=== PATIENT | male | born 2000 | race Caucasian/White ===

== ENCOUNTER 2022-03-26 10:51 | Outpatient (REF) | payer MEDICAID, SELFPAY ==
--- NOTE | ~2022-03-26 | US_ITS ---
EXAMINATION: US SOFT TISSUE NECK CLINICAL INFORMATION: History of left forehead lump above the eyebrow. COMPARISON: None TECHNIQUE: Sonographic imaging of soft tissues in the area of palpable concern at the left for head was performed by the technologist using a high-resolution linear transducer. FINDINGS: There are no significant sonographic findings in the visualized subcutaneous tissues in the area of concern at the left forehead. The lab animal technologist was unable to identify any measurable lesion in the soft tissues. There is no fluid collection, soft tissue mass or abnormal vascularity in the region. Also, there is no evidence of a lesion extending exophytically from the skull surface in this area. US/US soft tiss head and/or neck IMPRESSION: No significant sonographic findings in the area of concern.
== END 2022-03-26 10:52 | disposition home or self-care (01) ==
LOC: HO.US 10:51
PROVIDERS: PCP Registered Nurse; Visit Provider Registered Nurse
DX: L72.9 Follicular cyst of the skin and subcutaneous tissue, unspecified (principal)
CPT/HCPCS: 76536

== ENCOUNTER 2022-05-21 02:21 | Emergency (ER) | payer OTHER, MEDICAID, SELFPAY ==
[2022-05-21 02:52] VITALS: BP 145/79; PULSE 104; RESP 17; TEMP 37.4; O2SAT 96; BMI 51.0
--- NOTE | 2022-05-21 03:10 | ED_ITS ---
HPI - Psych General Chief Complaint: Psychiatric Symptoms Stated Complaint: crisis Time Seen by Provider: 05/21/22 02:56 Source: patient Mode of arrival: ambulatory Limitations: no limitations History of Present Illness HPI Narrative: Patient 22 years old with history of anxiety, depression brought by his father for increased anxiety and depression due to inability to refill his medication Risperdal Lamictal and Klonopin as he moved from [place], for last 4 days patient reported auditory hallucination non commanding in nature coming quite otherwise patient had a suicidal attempt in 02/04 requiring 7 days of inpatient psych admission Related Data Home Medications Medication Instructions Recorded Confirmed acetaminophen 500 mg tablet 2 tab PO Q8H PRN pain 05/21/22 05/21/22 cholecalciferol (vitamin D3) 25 1 cap PO DAILY 05/21/22 05/21/22 mcg (1,000 unit) capsule (Vitamin D3) clonazepam 0.5 mg tablet 1 tab PO BID PRN anxiety 05/21/22 05/21/22 hydroxyzine pamoate 50 mg capsule 1 cap PO DAILY 05/21/22 05/21/22 lamotrigine 25 mg tablet 1 tab PO BID 05/21/22 05/21/22 naproxen sodium 220 mg tablet (All 2 tab PO ONCE headache 05/21/22 05/21/22 Day Relief) risperidone 1 mg tablet 1 mg PO QAM 05/21/22 05/21/22 rizatriptan 10 mg tablet 10 mg PO DAILY PRN Migraine 05/21/22 05/21/22 Headache Allergies Allergy/AdvReac Type Severity Reaction Status Date / Time No Known Allergies Allergy Verified 05/21/22 03:05 Review of Systems Review of Systems: Yes all other systems are reviewed and are negative [facility] Past Medical History Medical History Bipolar II disorder THEO (generalized anxiety disorder) Impulsive personality disorder Social History Social History Advance Directives: No Advance Directives Information Provided: Yes Physical Exam Vital Signs: Vital Signs: Last Vital Signs Temp 99.4 F 05/21/22 02:52 Pulse 104 H 05/21/22 02:52 Resp 17 05/21/22 02:52 BP 145/79 H 05/21/22 02:52 Pulse Ox 96 05/21/22 02:52 O2 Del Method 05/21/22 02:52 BMI result Body Mass Index 51.0 Appearance: Alert. Oriented X3. No acute distress. Eyes: PERRLA, No Nystagmus ENT: Pharynx normal. Oral Mucosa moist Neck: Normal inspection. Neck supple. CVS: Normal heart rate and rhythm. Pulses normal. Respiratory: No respiratory distress. Equal air entry bilateral, no wheezing/rales/rhonchi Abdomen: Soft and nontender. Bowel sounds are present, no mass palpable, no CVA tenderness Skin: Skin warm and dry. Normal skin color. Normal skin turgor. Extremities: No lower extremity edema. No calf tenderness psych: Calm and cooperative denies any active hallucinations or delusions Neuro: Oriented X 3. No motor deficit. No sensory deficit.No cerebellar signs , cranial nerves II-XII intact Medications Administered Generic Name Dose Route Start Last Admin Trade Name Freq PRN Reason Stop Dose Admin Clonazepam 0.5 mg 05/21/22 03:14 05/21/22 03:23 Clonazepam 0.5 Mg Tablet PO 0.5 mg BID PRN Administration anxiety Risperidone 1 mg 05/21/22 03:15 05/21/22 03:26 Risperidone 1 Mg Tablet PO 1 mg DAILY NKECHI Administration Medical Decision Making Medical Decision Making [facility] Narrative: Patient increased anxiety and depression no current SI will get care team evaluation so that he can get psychiatrist and get the prescription Lab Data [facility] Lab Attestation statement: I reviewed the patient's lab results. 05/21/22 03:22 05/21/22 03:22 Labs: Lab Results 05/21/22 05/21/22 05/21/22 Range/Units 03:06 03:06 03:22 WBC 8.2 (4.8-10.8) X10*3/uL RBC 4.93 (4.60-5.80) X10*6/uL Hgb 13.0 L (14.0-18.0) g/dl Hct 41.0 L (42.0-52.0) % MCV 83.2 (80.0-98.0) fL MCH 26.4 L (27.0-33.0) pg MCHC 31.7 (31.0-36.0) g/dl RDW 13.2 (11.0-16.0) % Plt Count 381 (160-400) X10*3/uL MPV 10.0 (9.4-12.4) fL Immature Gran % (Auto) 1.1 H (0.0-0.4) % Neut % (Auto) 47.8 (45-73) % Lymph % (Auto) 37.9 (20-40) % Walton % (Auto) 8.2 (2-11) % Eos % (Auto) 4.3 H (0-4) % Baso % (Auto) 0.7 (0-2) % Lymph # (Auto) 3.1 (1.2-4.9) X10*3/uL Walton # (Auto) 0.7 (0.1-1.2) X10*3/uL Eos # (Auto) 0.4 (0.0-0.4) X10*3/uL Baso # (Auto) 0.1 (0.0-0.2) X10*3/uL Abs Immat Gran (auto) 0.09 H (0.00-0.03) X10*3/uL Absolute Neuts (auto) 3.9 (2.0-8.3) x10*3/uL Absolute Nucleated RBC 0.000 (0.0-0.012) X10*3/uL Nucleated RBC % (auto) 0.0 (0.0-0.2) /100WBC Sodium (135-145) mmol/L Potassium (3.3-5.1) mmol/L Chloride (96-108) mmol/L Carbon Dioxide (22-29) mmol/L Anion Gap (12-20) BUN (9-16) mg/dL Creatinine (0.5-1.4) mg/dL Estim Creat Clear Calc Estimated GFR Random Glucose (60-115) mg/dL Calcium (8.4-10.2) mg/dL Total Bilirubin (0.0-1.0) mg/dL AST (5-37) U/L ALT (0-40) U/L Alkaline Phosphatase (39-117) U/L Total Protein (6.5-8.0) g/dL Albumin (3.5-5.0) g/dL Urine Opiates Screen Not Detected (Not Detect) Urine Fentanyl Screen Not Detected (Not Detect) Ur Barbiturates Screen Not Detected (Not Detect) Ur Phencyclidine Scrn Not Detected (Not Detect) Ur Amphetamines Screen Not Detected (Not Detect) U Benzodiazepines Scrn Not Detected (Not Detect) Urine Cocaine Screen Not Detected (Not Detect) U Marijuana (THC) Screen Not Detected (Not Detect) COVID-19 (CHASE) Negative (Negative) COVID-19 Clin Com See Note 05/21/22 Range/Units 03:22 WBC (4.8-10.8) X10*3/uL RBC (4.60-5.80) X10*6/uL Hgb (14.0-18.0) g/dl Hct (42.0-52.0) % MCV (80.0-98.0) fL MCH (27.0-33.0) pg MCHC (31.0-36.0) g/dl RDW (11.0-16.0) % Plt Count (160-400) X10*3/uL MPV (9.4-12.4) fL Immature Gran % (Auto) (0.0-0.4) % Neut % (Auto) (45-73) % Lymph % (Auto) (20-40) % Walton % (Auto) (2-11) % Eos % (Auto) (0-4) % Baso % (Auto) (0-2) % Lymph # (Auto) (1.2-4.9) X10*3/uL Walton # (Auto) (0.1-1.2) X10*3/uL Eos # (Auto) (0.0-0.4) X10*3/uL Baso # (Auto) (0.0-0.2) X10*3/uL Abs Immat Gran (auto) (0.00-0.03) X10*3/uL Absolute Neuts (auto) (2.0-8.3) x10*3/uL Absolute Nucleated RBC (0.0-0.012) X10*3/uL Nucleated RBC % (auto) (0.0-0.2) /100WBC Sodium 140 (135-145) mmol/L Potassium 4.4 (3.3-5.1) mmol/L Chloride 107 (96-108) mmol/L Carbon Dioxide 24 (22-29) mmol/L Anion Gap 13 (12-20) BUN 15 (9-16) mg/dL Creatinine 0.91 (0.5-1.4) mg/dL Estim Creat Clear Calc 177.9 Estimated GFR > 60 Random Glucose 97 (60-115) mg/dL Calcium 9.7 (8.4-10.2) mg/dL Total Bilirubin 0.2 (0.0-1.0) mg/dL AST 29 (5-37) U/L ALT 64 H (0-40) U/L Alkaline Phosphatase 68 (39-117) U/L Total Protein 7.3 (6.5-8.0) g/dL Albumin 4.4 (3.5-5.0) g/dL Urine Opiates Screen (Not Detect) Urine Fentanyl Screen (Not Detect) Ur Barbiturates Screen (Not Detect) Ur Phencyclidine Scrn (Not Detect) Ur Amphetamines Screen (Not Detect) U Benzodiazepines Scrn (Not Detect) Urine Cocaine Screen (Not Detect) U Marijuana (THC) Screen (Not Detect) COVID-19 (CHASE) (Negative) COVID-19 Clin Com Discharge Plan Discharge Clinical Impression: Bipolar disorder Patient Disposition: Still a Patient Prescriptions: No Action clonazepam 0.5 mg tablet 1 tab PO BID PRN (Reason: anxiety) rizatriptan 10 mg tablet 10 mg PO DAILY PRN (Reason: Migraine Headache) hydroxyzine pamoate 50 mg capsule 1 cap PO DAILY acetaminophen 500 mg tablet 2 tab PO Q8H PRN (Reason: pain) lamotrigine 25 mg tablet 1 tab PO BID naproxen sodium [All Day Relief] 220 mg tablet 2 tab PO ONCE risperidone 1 mg tablet 1 mg PO QAM cholecalciferol (vitamin D3) [Vitamin D3] 25 mcg (1,000 unit) capsule 1 cap PO DAILY Interventions: [place]-Suicide Risk Severity Scale Last Done: 05/21/22 06:13
[2022-05-21] MEDS: clonazePAM 0.5 MG TABLET PO (03:23)
[2022-05-21] MEDS: risperiDONE 1 MG TABLET PO ×2 (03:26→08:34)
[2022-05-21 03:27] LABS: MANUAL DIFF FLAG NO
--- NOTE | 2022-05-21 03:28 | PC.NURSE ---
Medical history updated, Klonopin 0.5 mg and Risperidon 0.5 mg ad ministered as ordered, med rec completed, patient medication compliant, care consult completed, psych consult ordered to review medication, Ugandan speaking primarily, behavior appropriate and non concerning, VS unremarkable, will continue to monitor.
[2022-05-21 03:29] LABS: Basophils Absolute Auto 0.1 X10*3/uL (0.0-0.2); Basophils Percent Auto 0.7 % (0-2); Eosinophils Absolute Auto 0.4 X10*3/uL (0.0-0.4); Eosinophils Percent Auto 4.3 % (0-4); Imm Gran Abs Auto 0.09 X10*3/uL (0.00-0.03); Imm Gran Pct Auto 1.1 % (0.0-0.4); Lymphocytes Absolute Auto 3.1 X10*3/uL (1.2-4.9); Lymphocytes Percent Auto 37.9 % (20-40); Mean Corpuscular HGB Conc 31.7 g/dl (31.0-36.0); Mean Corpuscular Hemoglobin 26.4 pg (27.0-33.0); Mean Corpuscular Volume 83.2 fL (80.0-98.0); Monocytes Absolute Auto 0.7 X10*3/uL (0.1-1.2); Monocytes Percent Auto 8.2 % (2-11); Neutrophils Absolute Auto 3.9 x10*3/uL (2.0-8.3); Neutrophils Percent Auto 47.8 % (45-73); Platelet Count 381 X10*3/uL (160-400); Red Blood Count 4.93 X10*6/uL (4.60-5.80); Red Cell Distribution Width 13.2 % (11.0-16.0); White Blood Count 8.2 X10*3/uL (4.8-10.8)
[2022-05-21 03:38] LABS: Amphetamine Screen Urine Not Detected (Not Detect); Barbiturates, Urine Not Detected (Not Detect); Benzodiazepines Screen Urine Not Detected (Not Detect); Cannabinoid Screen Urine Not Detected (Not Detect); Cocaine Screen Urine Not Detected (Not Detect); Fentanyl, urine Not Detected (Not Detect); Opiate Screen Urine Not Detected (Not Detect); Phencyclidine Screen Urine Not Detected (Not Detect)
[2022-05-21 03:50] LABS: Alanine Aminotransferase 64 U/L (0-40); Albumin Level 4.4 g/dL (3.5-5.0); Alkaline Phosphatase 68 U/L (39-117); Anion Gap 13 (12-20); Aspartate Amino Transferase 29 U/L (5-37); Bilirubin Total 0.2 mg/dL (0.0-1.0); Blood Urea Nitrogen 15 mg/dL (9-16); Calcium 9.7 mg/dL (8.4-10.2); Carbon Dioxide 24 mmol/L (22-29); Chloride 107 mmol/L (96-108); Creatinine Clr Calc Pharmacy 177.9; Estimated Glomerular Filt Rate > 60; Glucose Random 97 mg/dL (60-115); Potassium 4.4 mmol/L (3.3-5.1); Sodium 140 mmol/L (135-145); Total Protein 7.3 g/dL (6.5-8.0)
[2022-05-21 03:53] LABS: COVID-19 Test Negative (Negative); IDNOW Serial# 6674DD1D
--- OUTSIDE RECORDS SUMMARY | 2022-05-21 03:54 | XMS_ITS | Continuity of Care Document ---
:2000 Author Organization [facility] Address [address] [place] [address], [address] [facility], [address] [place] [id number]- Care Team Providers Name Role Phone Genoveva Fernandez NP Primary Care Physician Encounter [facility] [place] Date(s): 03/22/22 - 04/21/22 [facility] [address] [facility], [address] [facility], [address] [place] [id number] Allergies, Adverse Reactions, Alerts No Known Allergies Medications acetaminophen 500 mg oral capsule 2 capsule = 1,000 mg, By Mouth, Every 6 hours, 0 Refills, Maintenance, 04/20/22 10:17:00 EST, Partial fill upon patient request if the prescription is for a schedule II opioid drug. Start Date: 04/20/22 Status: OrderedclonazePAM 0.5 mg oral tablet 1 tablet = 0.5 mg, By Mouth, 3 times a day, 0 Refills, Maintenance, 04/20/22 10:09:00 EST, Partial fill upon patient request if the prescription is for a schedule II opioid drug. Start Date: 04/20/22 Status: OrderedhydrOXYzine pamoate 50 mg oral capsule 1 capsule = 50 mg, By Mouth, 4 times a day, 0 Refills, Maintenance, 04/20/22 10:14:00 EST, Partial fill upon patient request if the prescription is for a schedule II opioid drug. Start Date: 04/20/22 Status: Orderedlamotrigine 25 mg oral tablet 25 mg, 1, tablet, By Mouth, 2 times a day, Refills 0, Maintenance, 04/20/22 10:20:00 EST, Partial fill upon patient request if the prescription is for a schedule II opioid drug. Start Date: 04/20/22 Status: Orderednaproxen sodium 220 mg oral tablet 2 capsule, By Mouth, Once, take 440mg with naratriptan for acute headache., # 20 tablet, 1 Refills, Soft Stop, 12/06/22 10:51:00 EST, Tablet, [facility], Partial fill upon patient request if the prescription is for a schedule II op... Start Date: 04/20/22 Status: Orderednaratriptan 2.5 mg oral tablet 1 tablet = 2.5 mg, By Mouth, Daily, PRN Headache, take with naproxen 440mg for acute headache, # 9 tablet, 1 Refills, Acute 04/20/23 0:00:00 EST, 04/20/22 10:51:00 EST, [facility], Partial fill upon patient request if the prescript... Start Date: 04/20/22 Stop Date: 04/20/23 Status: OrderedrisperiDONE 1 mg oral tablet 1 mg, 1, tablet, By Mouth, 2 times a day, Refills 0, Maintenance, 04/20/22 10:10:00 EST, Partial fill upon patient request if the prescription is for a schedule II opioid drug. Start Date: 04/20/22 Status: Orderedsertraline 100 mg oral tablet 1 tablet = 100 mg, By Mouth, Daily, 0 Refills, Maintenance, 04/20/22 10:19:00 EST, Partial fill uponpatient request if the prescription is for a schedule II opioid drug. Start Date: 04/20/22 Status: OrderedVitamin D3 1000 intl units oral tablet, chewable 1 tablet = 25 mcg, Daily, 0 Refills, Maintenance, 04/20/22 10:14:00 EST, Partial fill upon patient request if the prescription is for a schedule II opioid drug. Start Date: 04/20/22 Status: Ordered Social History Social History Type Response Smoking Status Never (less than 100 in life time) entered on: 04/20/22 Sex Patient Care team information Care Team PersonnelName: Genoveva Fernandez NP Position: Reference Physician Member Role: PCP Address: Address: [address] [place] [id number]- Care Team Related PersonsName: CAROLINA BERNAL Address: home [address] [place] [id number]
[2022-05-21] MEDS: hydrOXYzine HCL 50 MG TABLET PO (08:34)
[2022-05-21] MEDS: lamoTRIgine 25 MG TABLET PO (08:34)
[2022-05-21] MEDS: Cholecalciferol (Vitamin D3) 25 MCG TABLET PO (08:34)
--- NOTE | 2022-05-21 08:41 | PC.NURSE ---
Pt alert and awake, ambulatory to bathroom. Accepted AM medications. Awaiting consult and disposition. Reports verbally feeling better today.
[2022-05-21 11:37] VITALS: BP 135/79; PULSE 99; RESP 16; TEMP 36.7; O2SAT 96
--- NOTE | 2022-05-22 18:20 | MHC.CARE ---
CARE team called Faheem to check in on his current status for follow up, he reports his anxiety has decreased significantly and he slept very well last evening and will call CARE team if he requires additional support in the future.
== END 2022-05-21 11:49 | disposition home or self-care (01) ==
PROVIDERS: Emergency Provider Internal Medicine
DX: F33.1 Major depressive disorder, recurrent, moderate (principal); F41.9 Anxiety disorder, unspecified; Z76.0 Encounter for issue of repeat prescription; Z20.822 Contact with and (suspected) exposure to COVID-19; Z79.899 Other long term (current) drug therapy
CPT/HCPCS: 36415; 80053; 80307; 85025; 87635; 99284; S9485

== ENCOUNTER 2022-12-06 15:07 | Outpatient (AMB) | payer MEDICAID, SELFPAY ==
[2022-12-06 15:09] VITALS: PULSE 110; O2SAT 98; BMI 54.2
--- NOTE | 2022-12-06 15:09 | MHC.OFFVIS ---
Intake Vital Signs 12/06/22 15:09 Height 5 ft 7 in Weight 346 lb 2 oz BMI 54.2 Pulse 110 H Pulse Source Pulse Oximeter Pulse Oximetry (%) 98 Oxygen Delivery Method Room Air Intake Visit Reasons: [employer] / UYEN / 09/27/22 - LVM + LETTER-LVM Intake Note: Patient presents for UYEN Allergies No Known Allergies Allergy (Verified 12/06/22 15:12) HPI HPI Comments History of Present Illness Details 22 y/o male patient presents with his mother for new in-person visit for sleep consultation. Pt reports snoring and jerk movement while he sleeping. He has frequent arousals, gasping and witnessed apnea spells. He has non refreshing sleep with daytime tiredness. Family hx of sleep apnea, his parents have sleep apnea and using CPAP. He tried his mother's CPAP and was able to sleep better. Pt had a PSG sleep study done at [facility], but it was inconclusive. He needed to repeat sleep study but no one call for reschedule. Pt gained more than 70 lb over the last year. Sleep questionnaire: Have you ever been diagnosed with a sleep disorder? No. Have you ever had a sleep study in the past? No. Have you ever been treated for a sleep disorder? No. Do you take medications for a sleep disorder? riperidone 1mg, hydroxyzine 50 mg, and clonazepam 1 mg. Do you snore? Yes. Do you wake up gasping at night? Yes. Do you have episodes of apneas? Yes. If yes, are they witnessed? Yes, by his family members. Do you have episodes of nocturnal chest pain or dyspnea? No. Do you have difficulty initiating sleep? Yes. Do you have difficulty maintaining sleep? Yes. Do you wake up tired? Yes. Do you have headaches upon awakening? Yes, sometimes. Do you wake up with dry mouth or throat? Yes. Do you have GERD? No. Do you have nocturia? No. Do you have nocturnal leg cramps? Yes. Do you have symptoms of restless legs? Yes, sometimes. Do you act out your dreams? Yes, punching and crying. Sleep hygiene questionnaire: What is your usual sleep routine? Usual bedtime is at 11 pm ; Usual wake up time is at 1 pm. Do you take naps? No. Is your sleep environment cool, dark, and quiet? Yes. Do you exercise? No. Do you take caffeine or other stimulants? 3 cups of coffee until before going to bed. Do you use electronics in bed? Yes, TV on. What is your work schedule? N/A. Hypersomnolence questionnaire: Do you have daytime tiredness or fatigue? Yes. Do you easily fall asleep when inactive? No. Have you ever had episodes of sudden weakness? No. Have you ever had episodes of sudden weakness associated with strong emotions? No. PFSH Medical History Bipolar II disorder THEO (generalized anxiety disorder) Impulsive personality disorder Family History (Updated 12/06/22 @ 15:16 by MARIAELENA Murphy) Father HTN (hypertension) Apnea Acute asthma Mother HTN (hypertension) Acute asthma Apnea Arthritis Brother Acute asthma Sister Acute asthma Social History (Updated 12/06/22 @ 15:16 by MARIAELENA Murphy) Alcohol intake: never Patient Tobacco Use Status: Never used Tobacco Review of Systems Const All systems reviewed & are unremarkable except as noted in HPI and below ENT Reports Normal hearing present Neuro Reports Normal hearing present Physical Exam Vital Signs: Last Vital Signs Pulse 110 H 12/06/22 15:09 Pulse Ox 98 12/06/22 15:09 Oxygen Delivery Method Room Air 12/06/22 15:09 BMI result Body Mass Index 54.2 Const General: cooperative Nutritional Appearance: obese Orientation/consciousness: patient oriented x3 Limitations: language barrier (Canadian speaking only) Neck Neck: Yes full ROM and Yes supple Resp Effort & Inspection: normal respiratory effort and able to speak in complete sentences Neuro General: patient oriented x3 and gait normal Cranial nerves: Yes Bilaterally intact EOM present, Yes Normal facial strength present, Yes Midline tongue present, Yes Symmetric palate elevation present, Yes Normal hearing present, Yes Ability to bilaterally rotate head present and Yes Ability to bilaterally elevate shoulders present Cognition (Neuro): normal cognition Gait exam (Neuro): Normal gait present Motor exam (neuro): 5/5 motor strength present throughout, Pronator motor function not present and no tremor noted Psych Appearance: grossly normal Mental Status: mental status grossly normal Speech and movement: Normal speech and movement present Affect: normal affect Attitude: cooperative Assessment & Plan Assessment & Plan (1) Morbid obesity with BMI of 50.0-59.9, adult: Code(s): E66.01 - Morbid (severe) obesity due to excess calories; Z68.43 - Body mass index [BMI] 50.0-59.9, adult (2) Daytime somnolence: Code(s): R40.0 - Somnolence (3) Sleep difficulties: Code(s): G47.9 - Sleep disorder, unspecified (4) Snoring: Code(s): R06.83 - Snoring Plan Pt is advised to undergo in lab sleep study to assess for sleep apnea. Will f/u with pt after study to discuss results and appropriate treatment options. Sleep hygiene education provided. Limit caffeine intake in the evening, and having routine sleep schedule. Try to start the day early. Refer patient to wt management program. Pt to call with any worsening concerns or questions. Orders: Orders RT PSG in-lab sleep study Today E66.01 - Morbid (severe) obesity due to excess calories, G47.9 - Sleep disorder, unspecified, I10 - Essential (primary) hypertension, R06.83 - Snoring, R40.0 - Somnolence, Z68.43 - Body mass index [BMI] 50.0-59.9, adult Referrals Medical Weight Management Referral E66.01 - Morbid (severe) obesity due to excess calories, Z68.43 - Body mass index [BMI] 50.0-59.9, adult Medications: New magnesium oxide 400 mg PO BEDTIME 30 days 30 tabs 5RF Coding Level of Care Code New Pt Level 4 (75068) Diagnoses Morbid obesity with BMI of 50.0-59.9, adult E66.01; Z68.43 Daytime somnolence R40.0 Sleep difficulties G47.9 Snoring R06.83
== END 2022-12-06 15:52 | disposition home or self-care (01) ==
PROVIDERS: PCP Registered Nurse; Visit Provider Nurse Practitioner Family
DX: E66.01 Morbid (severe) obesity due to excess calories (principal); Z68.43 Body mass index [BMI] 50.0-59.9, adult; R40.0 Somnolence; G47.9 Sleep disorder, unspecified; R06.83 Snoring
CPT/HCPCS: 99204

== ENCOUNTER → 2022-12-06 15:07 | Outpatient (BNVA) | payer MEDICAID, SELFPAY | PROVIDERS: PCP Registered Nurse; Visit Provider Nurse Practitioner Family | DX: G47.9 Sleep disorder, unspecified (principal); R40.0 Somnolence; R06.83 Snoring; E66.01 Morbid (severe) obesity due to excess calories; Z68.43 Body mass index [BMI] 50.0-59.9, adult | CPT/HCPCS: 99204 ==

== ENCOUNTER 2022-12-24 18:48 | Outpatient (REF) | payer MEDICAID, SELFPAY ==
[2022-12-28 10:53] LABS: Alphahydroxymidazolam,GCMS Ur NEGATIVE; Alphahydroxytriazolam, GCMS Ur NEGATIVE; Alprazolam, GCMS Urine NEGATIVE; Lorazepam GCMS Urine NEGATIVE; Nordiazepam, GCMS Urine NEGATIVE; Oxazepam, GCMS Urine NEGATIVE; Temazepam, GCMS Urine NEGATIVE
[2022-12-28 10:54] LABS: Flurazepam Metabolite,GCMS Ur NEGATIVE
== END 2022-12-24 18:49 | disposition home or self-care (01) ==
LOC: HO.HHCLNP 18:48
PROVIDERS: Visit Provider Student in an Organized Health Care Education/Training Program
DX: F41.9 Anxiety disorder, unspecified (principal)
CPT/HCPCS: 80346

== ENCOUNTER → 2023-01-02 19:30 | Outpatient (REF) | payer MEDICAID, SELFPAY | LOC: HO.SL 19:30 | PROVIDERS: PCP Registered Nurse; Visit Provider Nurse Practitioner Family | DX: R06.83 Snoring (principal); R40.0 Somnolence; G47.9 Sleep disorder, unspecified; E66.01 Morbid (severe) obesity due to excess calories; I10 Essential (primary) hypertension; Z68.43 Body mass index [BMI] 50.0-59.9, adult | CPT/HCPCS: 95810 ==

== ENCOUNTER → 2023-01-02 22:41 | Outpatient (BNV) | payer MEDICAID, SELFPAY | PROVIDERS: PCP Registered Nurse; Visit Provider Psychiatry & Neurology Neurology | DX: G47.33 Obstructive sleep apnea (adult) (pediatric) (principal) | CPT/HCPCS: 95810 ==